=== PATIENT | male | born 1970 | race Caucasian/White ===

== ENCOUNTER → 2020-01-21 | Outpatient (CLI) | payer BC, OTHER ==
[~2020-01-21] MED LIST: ACID CONTROLLER20 MG PO; ACIDOPHILUS1 EAC3 PO; ALLEGRA ALLERG180 MG PO; ALPHAGAN P5 ML OPHTHALMIC; AZELASTINE137 MCG/0. NASAL; FULL SPECTRUM0.8 MG PO; MELATONIN5 MG PO; PROAIR HFA8.5 GM INH; TRAVATAN Z5 ML OPHTHALMIC; TURKEY TAIL PO; [UNRECOGNIZED DRUG - OTHER] PO; [UNRECOGNIZED DRUG - REMARK] PO; [UNRECOGNIZED DRUG - REMARK] PO
== END ==
LOC: LAB 01-20 10:10
PROVIDERS: ATTEND Orthopaedic Surgery
DX: Z01.812 Encounter for preprocedural laboratory examination (principal); Z20.828 Contact with and (suspected) exposure to other viral communicable diseases

== ENCOUNTER 2020-01-25 06:04 | Observation (INO) | payer BC, OTHER ==
[2020-01-18 09:31] LABS: MCH 28.3 pg (26.0-34.0); MCHC 33.3 g/dL (28.0-37.0); RBC 4.59 mil/uL (4.50-6.00); WBC 5.5 thou/uL (4.0-11.0)
[2020-01-18 09:54] LABS: INR 1.1
[2020-01-18 09:55] LABS: ALBUMIN 4.9 g/dL (3.4-5.0); CALCIUM 8.5 mg/dL (8.5-10.1); CREATININE 0.7 mg/dL (0.7-1.3); POTASSIUM 3.9 mmol/L (3.5-5.1)
[2020-01-18 10:56] LABS: URINE BILIRUBIN NEGATIVE (Negative); URINE BLOOD 1+ (Negative); URINE CLARITY CLEAR; URINE COLOR YELLOW; URINE GLUCOSE-RANDOM* NEGATIVE (Negative); URINE KETONES NEGATIVE (Negative); URINE LEUKOCYTES-REFLEX NEGATIVE (Negative); URINE NITRITE-REFLEX NEGATIVE (Negative); URINE PROTEIN (DIPSTICK) NEGATIVE (Negative); URINE UROBILINOGEN 0.2 E.U./dl (0.2-1.0)
[2020-01-18 11:10] LABS: BACTERIA-REFLEX 1-9 Few /HPF (None Seen); CASTS None Seen /LPF (None Seen); CRYSTALS None Seen /LPF (None Seen); SQUAMOUS None Seen /LPF (0-3); URINE RBC 3-10 Few /HPF (0-2); URINE WBC-REFLEX None Seen /HPF (0-5)
[~2020-01-25] VITALS: Ht 182.9 cm; Wt 75.7 kg
--- NOTE | ~2020-01-25 | O ---
[facility] [place] [address] OPERATIVE REPORT Name: ALAN JEROME Room #: 441-P [facility] MPratik#: [id number] Admission: 01/25/20 Attend Phys: Joshua Mayorga MD Discharge: Date of : 70 Report #: [id number] THIS REPORT FOR: cc: Joshua Aguiar MD, Scott S. MD Abraham, Scott M. MD ~ CC: Joshua Aguiar DATE OF SERVICE: 01/25/2020 PREOPERATIVE DIAGNOSIS: Left knee osteoarthritis. POSTOPERATIVE DIAGNOSIS: Left knee osteoarthritis. PROCEDURE: Left total knee arthroplasty using Navio robotic assistant finance manager. SURGEON: Joshua Mayorga MD. ROLL CUTTER: Cathy Campos PA-C. INDICATIONS FOR ROLL CUTTER: Throughout the case, extensive retraction and manipulation of the knee was required. This was afforded to me by my assistant finance manager. ANESTHESIA: LMA with an adductor canal block. IMPLANTS: [employer]hew size 6 Journey II BCS Oxinium femur, a size 6 tibia, a size 35 patella and a 10 constrained polyethylene. TOURNIQUET TIME: 54 minutes. ESTIMATED BLOOD LOSS: 25 mL. COMPLICATIONS: None. SPECIMENS: None. CONDITION UPON LEAVING THE OPERATING ROOM: Stable. INDICATIONS FOR PROCEDURE: The patient is a 49-year-old gentleman with severe left knee osteoarthritis. He had failed conservative measures for this and after discussion with him, he elected for left total knee arthroplasty. DESCRIPTION OF PROCEDURE: Risks, benefits, alternatives, complications were discussed in detail with the patient including but not limited to risk of anesthesia, risk of damage to nerves, arteries, blood vessels, risk for [facility] [place] [place] [address] [place] [address] OPERATIVE REPORT Name: ALAN JEROME Room #: 441-P [facility] Sindy Irwin#: [id number] Admission: 01/25/20 Attend Phys: Joshua Mayorga MD Discharge: Date of : 70 Report #: [id number] infection, bleeding, risk for continued knee pain, need for reoperation. Informed consent was obtained from the patient. Left knee was appropriately marked in the preoperative holding area. IV Ancef was given for preoperative antibiotics. Adductor canal block was placed by Anesthesia. He was brought to the operating room and placed in supine position on operating room table. LMA anesthesia was induced without complication. Tourniquet was placed on the left thigh. Left lower extremity was prepped and draped in normal sterile fashion. Timeout was performed properly identifying the patient and procedure as well as the instrumentation and implants. All in the operating room were in agreement. Left lower extremity was exsanguinated, tourniquet was inflated. Tourniquet time was 54 minutes. Standard midline approach to the knee was made with 10 blade through the skin. Dissection was taken down sharply to the fascia and deep flaps were developed medially and laterally. Fresh 10 blade was used to make a medial parapatellar arthrotomy and the knee was inspected. There was severe lateral compartment osteoarthritis with moderate medial and patellofemoral osteoarthritis. ACL and PCL were removed sharply. Reference pins were placed in the femur and the tibia. The knee was then digitally mapped using the Dynadmic robotic system. Intraoperative plan was made and we sized the size 6 femur with a size 6 tibia and a 10 spacer. After acceptance of the intraoperative plan, the distal femoral cut was made with a Navio bur. Distal femoral cutting block was pinned in place and chamfer cuts were made. Attention was turned to the tibia. Remainder of the menisci removed with Bovie cautery. Tibial resection guide was pinned in place using the Navio for placement and tibial resection was made. After this, flexion and extension gaps were checked and found to have good balance in flexion and extension both medially and laterally. Tibia was sized, found to be a size 6. A size 6 tibial trial was placed, pinned and punched. A size 6 femoral trial was placed and box cut was made. This was then trialed with a size 10 polyethylene and a size 10 polyethylene demonstrated 1-2 millimeter of laxity medially throughout range of motion. In deep flexion, it did demonstrate 4 or so mm of laxity laterally and it was felt we could make up for this with a constrained implant, 9 mm from the posterior surface of the patella and a size 35 patellar trial button was placed. Knee was taken through range of motion, found to be stable, found to have good patellar tracking. Trial components were removed. Bony ends were thoroughly irrigated with normal saline. A final size 6 tibia, size 6 Journey II BCS Oxinium femur and a size 35 patella were cemented in place using standard cementation techniques. While the cement cured, a periarticular injection consisting of morphine, ropivacaine, epinephrine and Toradol was placed around the knee joint capsule. After the cement cured, the tourniquet was deflated. Hemostasis was obtained with Bovie cautery. Final size 10 constrained polyethylene was placed. A gram of vancomycin was placed deep in the joint. Fascia was closed with 0 Vicryl, skin was closed with 2-0 Vicryl, 3-[address] [address] OPERATIVE REPORT Name: ALAN JEROME Room #: 441-P [facility] Sindy Irwin#: [id number] Admission: 01/25/20 Attend Phys: Joshua Mayorga MD Discharge: Date of : 70 Report #: [id number] Dermabond and a MELANI dressing was applied. The patient tolerated this procedure well and went to recovery room under care of Anesthesia postoperatively. By: [id number] Joshua Mayorga MD /nt
[2020-01-25 06:51] VITALS: BP 131/94
--- NOTE | 2020-01-25 11:48 | NUR ---
PT ARRIVED ON THE UNIT, AOX4, VSS. PT RATES PAIN IN LEFT KNEE 4/10. PT IS TOLERATING ICE CHIPS AT THIS TIME. IV 20G IN RIGHT HAND IS PATENT, MELANI DRESSING ON LLE, TEDS/SCD, ALONG WITH POLAR CARE IS PRESENT. NURSE EDUCATED PT CLINIC BUSINESS MANAGER LIGHT. FALL PRECAUTIONS IN PLACE. WILL CONTINUE TO MONITOR.
[2020-01-25 15:36] VITALS: BP 131/94
== END 2020-01-25 16:24 | disposition home or self-care (01) ==
LOC: TBA 06:04 → OR 06:04 → TBA 09:53 → OR 10:10 → 4S 11:01 → OR 12:06 → 4S 16:24
PROVIDERS: ADMIT Orthopaedic Surgery; ATTEND Orthopaedic Surgery
DX: M17.12 Unilateral primary osteoarthritis, left knee (principal); M19.011 Primary osteoarthritis, right shoulder; K21.9 Gastro-esophageal reflux disease without esophagitis; H53.9 Unspecified visual disturbance; Z87.891 Personal history of nicotine dependence; Z79.899 Other long term (current) drug therapy
CPT/HCPCS: 27447; S2900; 50010; 50101; 50415; 50954; 51130; 51225; 51320; 53000; 53078; 53368; 54118; 56527; 56528; 57095; 57103; 57110; 57127; 57180; 62110; 62900; 64039; 70005

== ENCOUNTER → 2020-07-29 | Outpatient (CLI) | payer BC, OTHER | LOC: LAB 07:50 | PROVIDERS: ATTEND Orthopaedic Surgery | DX: Z01.812 Encounter for preprocedural laboratory examination (principal); Z20.822 Contact with and (suspected) exposure to COVID-19 ==

== ENCOUNTER → 2020-08-03 | Day surgery (SDC) | payer BC, OTHER ==
[~2020-08-03] VITALS: Ht 180.3 cm; Wt 73.9 kg
[~2020-08-03] MED LIST changes: +NORCO5 PO
[2020-08-03 11:37] VITALS: BP 138/96
[2020-08-03 14:15] VITALS: BP 138/96
--- NOTE | 2020-08-08 08:23 | O ---
[facility] [place] [address] OPERATIVE REPORT Name: ALAN JEROME Room #: [facility].#: [id number] Admission: 08/03/20 Attend Phys: Joshua Mayorga MD Discharge: Date of : 70 Report #: [id number] THIS REPORT FOR: cc: Joshua Aguiar MD, Scott S. MD Abraham, Scott M. MD ~ DATE OF SERVICE: 08/03/2020 PREOPERATIVE DIAGNOSES: 1. Left total knee arthroplasty, cement loose body. 2. Scar tissue formation, left total knee arthroplasty. POSTOPERATIVE DIAGNOSES: 1. Left total knee arthroplasty, cement loose body. 2. Scar tissue formation, left total knee arthroplasty. PROCEDURES: 1. Left knee arthroscopy with loose body removal. 2. Limited synovectomy, left knee with removal of scar tissue. SURGEON: Joshua Mayorga MD. BEAM SEALER: Cathy Campos PA-C. ANESTHESIA: LMA. TOURNIQUET TIME: ____. INDICATIONS FOR PROCEDURE: The patient is a 50-year-old gentleman who ____ from a left total knee arthroplasty. He has done well with this; however, recently, he has noted increased posterior medial knee pain. X-ray showed a cement loose body in his posterior compartment, which had moved compared to previous x-rays. In addition, he was noting some grinding and scar tissue pain along the medial and lateral patella. After discussion with him, he elected for left knee arthroscopy with loose body removal and scar tissue removal. DESCRIPTION OF PROCEDURE: Risks, benefits, alternatives, complications were discussed in detail with the patient including but not limited to risk of anesthesia, risk of damage to nerves, arteries, blood vessels, risk for infection, bleeding, risk for continued knee pain, need for reoperation. Informed consent was obtained from the patient. Left knee was appropriately marked in the preoperative holding area. IV Ancef was given for preoperative antibiotics. He was brought to the operating room and placed in supine position on operating room table. LMA anesthesia was induced without complication. Tourniquet was placed on the left thigh. Left lower extremity was prepped and [facility] [address] [place] [address] OPERATIVE REPORT Name: JEROMEALAN JURADO Room #: [facility].#: [id number] Admission: 08/03/20 Attend Phys: Joshua Mayorga MD Discharge: Date of : 70 Report #: [id number] draped in normal sterile fashion. Timeout was performed properly identifying the patient and procedure as well as the instrumentation. All in the operating room were in agreement. Left lower extremity was exsanguinated, tourniquet was inflated. Tourniquet time was 33 minutes. Standard anterolateral portal was established with 11 blade through the skin. Arthroscope was introduced into the patellofemoral compartment, diagnostic arthroscopy was undertaken. Patellofemoral compartment was visualized and found to have an intact patellar component. There was scar tissue along the medial and lateral patella. Medial gutter was visualized and found to be without pathology. Medial compartment was visualized and medial portal was established under arthroscopic visualization. Probe was introduced into the medial compartment and there was noted to be an intact arthroplasty. Notch was visualized and found to be without pathology. Lateral compartment was visualized and found to have some scar tissue along the lateral gutter. This was removed with an oscillating shaver. No loose body was identified. Scope was placed back in the patellofemoral compartment and the scar tissue along the medial and lateral patella was debrided with an oscillating shaver. After this, a search for the cement loose body was performed. An accessory posteromedial portal was established under arthroscopic visualization and scope was placed into the posteromedial compartment through this portal. There was noted to be a cement loose body adjacent to the posterior medial capsule. Attempts were made to remove this with an arthroscopic grasper and after ranging the knee through range of motion the loose body ended up in the lateral compartment. Once in the lateral compartment, the loose body was easily removed with a grasper from the knee. After this, all fluid was allowed to drain from the knee. Knee was injected with 10 mL of 0.5% Marcaine. Incision was closed with 3-0 nylon. Soft dressing of Adaptic, 4 x 4, Webril, Chapo wrap were applied. The patient tolerated this procedure well and went to recovery room under care of anesthesia postoperatively. <ELECTRONICALLY SIGNED> By: Joshua Mayorga MD 08/08/20 0823 [id number] Joshua Mayorga MD /nt
== END | disposition home or self-care (01) ==
LOC: EDSTATUS 08:51 → OR 09:23 → PRE 09:31 → OR 09:39
PROVIDERS: ATTEND Orthopaedic Surgery
DX: M25.562 Pain in left knee (principal); T84.82XA Fibrosis due to internal orthopedic prosthetic devices, implants and grafts, initial encounter; L90.5 Scar conditions and fibrosis of skin; M23.42 Loose body in knee, left knee; J45.909 Unspecified asthma, uncomplicated; M19.90 Unspecified osteoarthritis, unspecified site; H40.9 Unspecified glaucoma; K21.9 Gastro-esophageal reflux disease without esophagitis; Z96.652 Presence of left artificial knee joint; Z98.890 Other specified postprocedural states; Z79.899 Other long term (current) drug therapy; Y83.8 Other surgical procedures as the cause of abnormal reaction of the patient, or of later complication, without mention of misadventure at the time of the procedure; Z87.891 Personal history of nicotine dependence
CPT/HCPCS: 50010; 50101; 50405; 56526; 57103; 57180; 58577; 58589; 62110; 62900; 70005